=== PATIENT | female | born 1990 | race Caucasian/White ===

== ENCOUNTER 2018-08-07 16:39 | Emergency (ER) | payer MEDICAID ==
[~2018-08-07] VITALS: Ht 162.6 cm; Wt 72.7 kg
[2018-08-07 16:52] VITALS: Ht 162.6 cm; Wt 72.7 kg
[2018-08-07 17:08] LABS: APPEARANCE HAZY (CLEAR); BILIRUBIN 1+ (NEGATIVE); COLOR YELLOW (YELLOW); GLUCOSE NEGATIVE (NEGATIVE); KETONE NEGATIVE (NEGATIVE); NITRITE POSITIVE (NEGATIVE); PROTEIN 2+ mg/dL (NEGATIVE); SPECIFIC GRAVITY 1.015 (1.005-1.020)
[2018-08-07 17:09] LABS: WHITE CELLS - URINE >50 /hpf (0-5)
[2018-08-07 17:10] LABS: BACTERIA MODERATE /hpf (NONE SEEN); EPITHELIAL CELLS OCC /hpf (0-5); RED CELLS - URINE 0-5 /hpf (0-5)
[2018-08-07 17:47] LABS: BASOPHILS 0.1 % (0-2); HEMATOCRIT 42.5 % (36.0-48.0); IMMATURE GRANULOCYTES 0.2 % (0-5); LYMPHOCYTES 10.9 % (15-50); MCH 30.6 pg (26.0-34.0); MCHC 32.9 g/dL (31.0-37.0); MEAN PLATELET VOLUME 11.8 fL (7.4-10.4); MONOCYTES 5.1 % (2-11); NEUTROPHILS 82.7 % (40-80); PLATELET COUNT 183 10x3/uL (130-400); RBC 4.57 10x6/uL (4.00-5.40); RDW 12.9 % (11.5-14.5); WBC 13.5 10x3/uL (4.8-10.8)
[2018-08-07 18:06] LABS: ALBUMIN 3.1 g/dL (3.4-5.0); ALKALINE PHOSPHATASE 118 U/L (46-116); ALT (SGPT) 127 U/L (10-68); CALC OSMOLALITY 273 mosm/kg (275-300); CALCIUM 8.9 mg/dL (8.5-10.1); CARBON DIOXIDE 28.7 mmol/L (21.0-32.0); CHLORIDE - SERUM 102 mmol/L (98-107); CREATININE - SERUM 0.9 mg/dL (0.6-1.3); GLUCOSE 111 mg/dL (74-106); POTASSIUM - SERUM 3.6 mmol/L (3.5-5.1); PROTEIN - SERUM 7.4 g/dL (6.4-8.2); SODIUM 138 mmol/L (136-145); UREA NITROGEN 5 mg/dL (7-18); eGFR NON AFRICAN AMERICAN 80 mL/min (90-120)
[2018-08-07] MEDS ORDERED: NORCO 7.5/325 T1 TA1 PO (18:43)
[2018-08-07] MEDS ORDERED: MACROBID100 MG PO (18:43)
[2018-08-07 19:24] VITALS: BP 109/67
== END 2018-08-07 19:24 | disposition home or self-care (01) ==
LOC: D.ER 16:39
PROVIDERS: Emergency Medicine
DX: M54.5 Low back pain (principal); R79.89 Other specified abnormal findings of blood chemistry; N39.0 Urinary tract infection, site not specified; F17.200 Nicotine dependence, unspecified, uncomplicated

== ENCOUNTER → 2019-06-08 09:54 | Outpatient (CLI) | payer MEDICAID ==
[2018-08-07 16:52] VITALS: BMI 27.5
[~2019-06-08 09:54] MED LIST: MACROBID100 MG PO; NORCO 7.5/325 T1 TA1 PO
== END | disposition home or self-care (01) ==
LOC: D.US 09:54
PROVIDERS: ATTEND Student in an Organized Health Care Education/Training Program
DX: N63.10 Unspecified lump in the right breast, unspecified quadrant (principal); N63.20 Unspecified lump in the left breast, unspecified quadrant

== ENCOUNTER → 2019-06-22 12:32 | Outpatient (CLI) | payer MEDICAID ==
[2018-08-07 16:52] VITALS: BMI 27.5
[~2019-06-22 12:32] MED LIST changes: +PRENAVITE1 TAB PO; +TUMS X-STR300 MG PO; +ZOFRAN4 MG PO
[2019-06-22 13:30] LABS: BASOPHILS 0.2 % (0-2); EOSINOPHILS 1.7 % (0-7); HEMATOCRIT 34.3 % (36.0-48.0); HEMOGLOBIN 11.1 g/dL (12-16); IMMATURE GRANULOCYTES 0.2 % (0-5); LYMPHOCYTES 24.9 % (15-50); MCH 29.4 pg (26.0-34.0); MCHC 32.4 g/dL (31.0-37.0); MCV 90.7 fL (80.0-100.0); MEAN PLATELET VOLUME 12.9 fL (7.4-10.4); MONOCYTES 6.7 % (2-11); NEUTROPHILS 66.3 % (40-80); PLATELET COUNT 177 10x3/uL (130-400); RBC 3.78 10x6/uL (4.00-5.40); RDW 13.9 % (11.5-14.5); WBC 9.1 10x3/uL (4.8-10.8)
[2019-06-22 13:43] LABS: ALBUMIN 2.5 g/dL (3.4-5.0); ALKALINE PHOSPHATASE 213 U/L (46-116); ALT (SGPT) 13 U/L (10-68); BILIRUBIN - DIRECT 0.09 mg/dL (0.00-0.30); BILIRUBIN - INDIRECT 0.21 mg/dL (0.00-1.00); CALC OSMOLALITY 273 mosm/kg (275-300); CALCIUM 9.2 mg/dL (8.5-10.1); CARBON DIOXIDE 23.4 mmol/L (21.0-32.0); CHLORIDE - SERUM 105 mmol/L (98-107); CREATININE - SERUM 0.5 mg/dL (0.6-1.3); GLUCOSE 73 mg/dL (74-106); SODIUM 138 mmol/L (136-145); UREA NITROGEN 9 mg/dL (7-18); URIC ACID 5.1 mg/dL (2.6-7.2); eGFR NON AFRICAN AMERICAN > 90 mL/min (90-120)
[2019-06-22 15:52] LABS: APPEARANCE CLOUDY (CLEAR); COLOR YELLOW (YELLOW); GLUCOSE NEGATIVE (NEGATIVE); KETONE SMALL mg/dL (NEGATIVE); NITRITE NEGATIVE (NEGATIVE); PROTEIN NEGATIVE (NEGATIVE)
[2019-06-22 15:53] LABS: BILIRUBIN NEGATIVE (NEGATIVE); UROBILINOGEN NORMAL (NORMAL)
[2019-06-22 15:54] LABS: BACTERIA FEW /hpf (NEGATIVE); EPITHELIAL CELLS 0-5 /hpf (0-5); RED CELLS - URINE 0-5 /hpf (0-5); WHITE CELLS - URINE 0-5 /hpf (NEGATIVE)
[2019-06-22 15:55] LABS: AMORPHOUS SEDIMENT >1+ /lpf (NONE SEEN)
[2019-06-23 17:25] LABS: PROTEIN - URINE 14.2 mg/dL (0.0-11.9)
[2019-07-06 16:19] VITALS: BMI 37.1
== END | disposition home or self-care (01) ==
LOC: D.LDO 12:32
PROVIDERS: ATTEND Student in an Organized Health Care Education/Training Program
DX: O16.9 Unspecified maternal hypertension, unspecified trimester (principal)

== ENCOUNTER 2019-07-06 12:34 | Inpatient (IN) | payer MEDICAID ==
[~2019-07-06] VITALS: Ht 162.6 cm; Wt 98.0 kg
[~2019-07-06 12:34] MED LIST changes: -PRENAVITE1 TAB PO; -TUMS X-STR300 MG PO; -ZOFRAN4 MG PO
[2019-07-06] MEDS ORDERED: PRENAVITE1 TAB PO (14:07)
[2019-07-06] MEDS ORDERED: ZOFRAN4 MG PO (14:07)
[2019-07-06] MEDS ORDERED: TUMS X-STR300 MG PO (14:08)
[2019-07-06 14:27] LABS: HEMATOCRIT 35.9 % (36.0-48.0); HEMOGLOBIN 11.5 g/dL (12-16); MCH 29.3 pg (26.0-34.0); MCV 91.6 fL (80.0-100.0); MEAN PLATELET VOLUME 13.3 fL (7.4-10.4); RBC 3.92 10x6/uL (4.00-5.40); RDW 14.1 % (11.5-14.5); WBC 8.9 10x3/uL (4.8-10.8)
[2019-07-06 16:19] VITALS: BP 123/74; Ht 162.6 cm; Wt 98.0 kg
--- NOTE | 2019-07-07 02:00 | NUR ---
PATIENT SITTING IN BED EATING FOOD FROM HOME, DENIES PAIN OR NEEDS AT THIS TIME. WILL CONTINUE TO MONITOR
--- NOTE | 2019-07-07 02:45 | NUR ---
BLANKET PROVIDED PER PT REQUEST, NO FURTHER NEEDS IDENTIFIED. WILL CONTINUE TO MONITOR
--- NOTE | 2019-07-07 04:02 | NUR ---
PT LYING IN BED HOLDING INFANT, MOTRIN 600MG PO ADMINISTERED AT THIS TIME PER MD ORDERS. PT RATES HER PAIN 5/10. SEE EMAR. NO FURTHER NEEDS IDENTIFIED, CALL LYLE IN REACH.
[2019-07-07 04:05] VITALS: BP 126/60
--- NOTE | 2019-07-07 05:38 | NUR ---
PT SITTING IN BED HOLDING , STATES THAT SHE IS CRAMPING. INFORMED PT THAT HER MOTRIN ORDER IS FOR EVERY 6 HRS AND THE PERCOCET ORDER WAS JUST A ONE TIME ORDER. PT VERBALIZES UNDERSTANDING. NO NEEDS IDENTIFIED, PT STATES THAT SHE IS ABOUT TO BREASTFEED.
[2019-07-07 06:00] LABS: BASOPHILS 0.2 % (0-2); EOSINOPHILS 0.6 % (0-7); HEMATOCRIT 33.4 % (36.0-48.0); HEMOGLOBIN 10.5 g/dL (12-16); IMMATURE GRANULOCYTES 0.3 % (0-5); MCH 28.5 pg (26.0-34.0); MCHC 31.4 g/dL (31.0-37.0); MCV 90.5 fL (80.0-100.0); MEAN PLATELET VOLUME 13.8 fL (7.4-10.4); MONOCYTES 7.3 % (2-11); NEUTROPHILS 69.6 % (40-80); PLATELET COUNT 163 10x3/uL (130-400); RBC 3.69 10x6/uL (4.00-5.40); RDW 14.1 % (11.5-14.5)
[2019-07-07 06:30] LABS: WBC 11.4 10x3/uL (4.8-10.8)
--- NOTE | 2019-07-07 08:00 | NUR ---
TO PT'S ROOM, PT IS RESTING WITH EYES CLOSED, RESP EVEN AND UL AT 18, LIGHTS ARE OUT IN ROOM WITH DIMMERS ON. PT NOT DISTURBED. SRUP X2, CALL LIGHT AND PHONE WITHIN REACH.
[2019-07-07 08:11] LABS: RAPID PLASMA REAGIN Non Reactive (Non Reactive)
[2019-07-07 08:35] VITALS: BP 133/87
--- NOTE | 2019-07-07 08:35 | NUR ---
AM ASSESSMENT COMPLETED, PT DENIES HEAVY BLEEDING OR PASSING CLOTS. PT DENIES ALL NEEDS AT THIS TIME. SEE EMAR FOR ALL MEDS ADM BY THIS RN. SRUP X2, CALL LIGHT AND PHONE WITHIN REACH.
--- NOTE | 2019-07-07 13:35 | NUR ---
TO ROOM TO ADM REGLAN 10 MG IV, DILUTED WITH 10 CC'S NS, SL FLUSHED WITH 5 CC'S NS PRIOR TO ADM WITH GOOD BLOOD RETURN NOTED. REGLAN ADM SIVP, THEN FLUSHED WITH 5 CC'S NS AFTER MED ADM WITH GOOD BLOOD RETURN NOTED, WITH NO REDNESS OR SWELLING NOTED TO IV SITE, PT DOES C/O STINGING TO IV SITE UPON START OF FLUSH OR MED ADM. BLUE EMESIS BAGS PROVIDED. PT HAS LEMON [place] SODA TO SIP ON. DENIES ALL OTHER NEEDS AT THIS TIME. SRUP X 2, CALL LIGHT AND PHONE WITHIN REACH.
--- NOTE | 2019-07-07 14:00 | NUR ---
PT UP TO SHOWER. DENIES ALL NEEDS. PT STATES SHE IS FEELING A LITTLE BETTER NOW. SRUP X2, CALL LIGHT AND PHONE WITHIN REACH.
--- NOTE | 2019-07-07 17:55 | NUR ---
PT HEARD FROM THE DESK COUGHING AND VOMITING, TO ROOM TO ADM ZOFRAN 8 MG ODT, AND IBUPROFEN 600 MG PO FOR C/O BACK PAIN AND ABD CRAMPING. EXPLAINED TO PT DR. BARONE WANTS HER TO STAY ON A BLAND DIET UNTIL SHE IS ABLE TO KEEP SOLIDS DOWN. PT IS ABLE TO TOLERATE WATER AND LEMON [place] SODA. PT STATES SHE IS NOT PASSING GAS, BOWEL SOUNDS ACTIVE X 4. PLACED IN MOMS ARMS AT HER REQUEST. PT DENIES ALL OTHER NEEDS AT THIS TIME. SR UP X2, CALL LIGHT AND PHONE WITHIN REACH.
[2019-07-07 19:38] VITALS: BP 107/67
--- NOTE | 2019-07-07 19:38 | NUR ---
SHIFT ASSESSMENT COMPLETED, SEE FLOWSHEET
--- NOTE | 2019-07-07 20:25 | NUR ---
PT WALKING IN HALLWAY WITH FAMILY.
--- NOTE | 2019-07-07 21:00 | NUR ---
PATIENT BACK TO ROOM
--- NOTE | 2019-07-07 21:30 | NUR ---
NURSERY RN TO ROOM WITH INFANT IN OPEN CRIB. PT DENIES NEEDS.
--- NOTE | 2019-07-07 23:08 | NUR ---
PATIENT RESTING QUIETLY WITH EYES CLOSED, NO DISTRESS NOTED. RESPIRATIONS EVEN AND NON LABORED. WILL CONTINUE TO MONITOR.
--- NOTE | 2019-07-08 00:56 | NUR ---
reglan administered per md orders, see emar. pt denies needs at this time. will continue to monitor
--- NOTE | 2019-07-08 02:41 | NUR ---
PT CALLED OUT AUTOMOBILE [employer]PHOL[employer] LYLE, STATES THAT THE NURSERY RN WANTED TO KNOW WHEN THE BABY WAS AWAKE. GIBRAN SUNG CALLED TO INFORM OF THE SAME.
--- NOTE | 2019-07-08 04:39 | NUR ---
PT RESTING QUIETLY IN BED WITH EYES OPEN, HOLDING . NO NEEDS IDENTITIFED, WILL CONTINUE TO MONITOR
[2019-07-08 07:23] VITALS: BP 97/54
--- NOTE | 2019-07-08 07:30 | NUR ---
PT AAOX4 ON ENTRY TO ROOM, CONVERSANT, SMILING, INFANT IN ARMS AND LYING LEFT TILT, RESP EVEN AND UNLABORED, HEART RRR, LUNGS CTAB, ABD SOFT AND MILDLY TENDER, FF AT U/2 AND MIDLINE, LOCHIA RUBRA LIGHT [place], NO CLOTS, PERFORMING PERICARE WITH BETADINE/WATER MIX AFTER VOIDS PER REPORT, VOIDING WITHOUT DIFFICULTY, +FLATUS REPORTED, NO BM YET, CONLEY FREELY, NEGATIVE YISSEL'S SIGN B LE, PEDAL PULSES STRONG/=/+2 B. CALL LIGHT IN EASY REACH, VSS, BED IN LOW POSITION, HOB ELEVATED 30 DEGREES, BED BRAKES LOCKED. REPORTS SOME NAUSEA AND ABDOMINAL CRAMPING 5/10, REQUESTS ZOFRAN AND MOTRIN, SAME PROVIDED WITH APPLE JUICE. WILL MONITOR FOR CHANGE IN STATUS.
--- NOTE | 2019-07-08 08:20 | NUR ---
ROUNDS COMPLETED, DENIES PAIN OR NEEDS AT THIS TIME, RESTING WITH EYES CLOSED. CALL LIGHT IN EASY REACH. WILL MONITOR.
--- NOTE | 2019-07-08 09:22 | NUR ---
ROUNDS COMPLETED, NAD NOTED, WILL MONITOR FOR CHANGE IN CONDITION.
--- NOTE | 2019-07-08 10:40 | NUR ---
DR CHAU TO SEE PT, DISCUSSED DISCHARGE THIS PM AT 48 HOURS WITH NO CHANGE IN INFANT STATUS, NAD NOTED, DENIES NEEDS OR CONCERNS WITH THIS RN INQUIRY. WILL MONITOR.
--- NOTE | 2019-07-08 11:49 | NUR ---
lemon ione soda provided upon request, denies other needs at this time, infant resting in rolling crib adjacent to bed also nad.
--- NOTE | 2019-07-08 14:10 | NUR ---
PT C/O CRAMPING LOW ABDOMINAL PAIN RATED 6/10 ON NUMERIC PAIN SCALE, REQUESTS PRN MEDICATION; SAME PROVIDED. NO OTHER NEEDS VOICED AT THIS TIME, RESP EVEN AND UNLABORED, CALL LIGHT IN EASY REACH, CONTINUE TO MONITOR.
--- NOTE | 2019-07-08 15:15 | NUR ---
PAIN REASSESSMENT COMPLETED, PT DENIES PAIN, SOME DIFFICULTY WITH MAINTAINING LATCH WITH ON RIGHT BREAST, PROVIDED ADDITIONAL EDUCATION AND ASSISTANCE AND REASSURANCE, PT WITH SUCCESSFUL LATCH AND AT THIS TIME, NO FURTHER CONCERNS OR NEEDS AT THIS TIME, CONTINUE TO MONITOR. CALL LIGHT IN EASY REACH.
--- NOTE | 2019-07-08 16:20 | NUR ---
ROUNDS COMPLETED, DENIES NEEDS OR CONCERNS, CONTINUE TO MONITOR.
--- NOTE | 2019-07-08 17:08 | NUR ---
NAD NOTED, RESP EVEN AND UNLABORED, DENIES C/O PAIN, CALL LIGHT IN EASY REACH. CONTINUE TO MONITOR.
--- NOTE | 2019-07-08 18:10 | NUR ---
NO NEEDS OR CONCERNS VOICED, HOB ELEVATED 30 DEGREES, CALL LIGHT IN EASY REACH.
--- NOTE | 2019-07-08 19:10 | NUR ---
BEDSIDE REPORT REC'D FROM Ruadel HERNANDEZ RN. PT REC'D SITTING IN HIGH FOWLERS POSITION WITH IN ARMS. REQUESTS D/C INSTRUCTIONS [place], VERBALIZES UNDERSTANDING THAT CAN'T BE D/C'D HOME UNTIL AT LEAST 2100 AND HAS TO BE D/C'D SEPERATELY FROM HER. LT WRIST PIV D/C'D PER PT REQUEST, TIP INTACT. BANDAID PLACED, NO S/S OF INFILTRATION NOTED. REFUSES SHIFT ASSESSMENT. POC DISCUSSED, VERBALIZES UNDERSTANDING AND REQUEST MOTRIN WHEN AVAILABLE FOR ABD CRAMPING, 4-5/10 WITH BF. BED IN LOW POSITION WITH UPPER SIDE RAILS RAISED X2. CALL LIGHT AND PHONE WITHIN REACH. WILL CONTINUE TO MONITOR.
--- NOTE | 2019-07-08 19:10 | NUR ---
BEDSIDE REPORT TO Tete LARIOS RN
--- NOTE | 2019-07-08 20:13 | NUR ---
C/O ABD CRAMPING 02/27, MOTRIN GIVEN PER ORDER AND PT REQUEST. MMR GIVEN TO LEFT DELTOID. INSTRUCTED ON POSSIBLE SIDE EFFECTS OF MMR INJ, VERBALIZES UNDERSTANDING, INFO SHEET GIVEN. VERBALIZES UNDERSTANDING AND DENIES QUESTIONS. REFUSES REGLAN D/T NO IV ACCESS AND REFUSING PIV RESTART.
--- NOTE | 2019-07-08 20:35 | NUR ---
DISCHARGE INSTRUCTIONS REVIEWED WITH PT AND SIGNIFICANT OTHER. BOTH VERBALIZE UNDERSTANDING. MEDS REVIEWED, VERBALIZES UNDERSTANDING. PT VERBALIZES UNDERSTANDING OF DISCHARGE INSTRUCTIONS AND DENIES QUESTIONS. DISCHARGE INSTRUCTIONS SIGNED AND COPY PROVIDED TO PT. VERBALIZES UNDERSTANDING TO CALL CLINIC IN AM AND SCHEDULE FOLLOW UP APPT WITH DR. MORSE, VERBALIZES UNDERSTANDING.
--- NOTE | 2019-07-08 21:24 | NUR ---
PT OFF UNIT WITH IN [facility] IN W/C WITH Roberta BARBOSA RN.
== END 2019-07-08 21:24 | disposition home or self-care (01) | DRG 807 ==
LOC: D.LD 12:34
PROVIDERS: ADMIT Student in an Organized Health Care Education/Training Program; ATTEND Student in an Organized Health Care Education/Training Program
PROC: 10E0XZZ Delivery of Products of Conception, External Approach (ICD-10-PCS; principal; 2019-07-06)
DX: O99.824 Streptococcus B carrier state complicating childbirth (principal); Z37.0 Single live birth; Z3A.39 39 weeks gestation of pregnancy; O69.81X0 Labor and delivery complicated by cord around neck, without compression, not applicable or unspecified; O71.82 Other specified trauma to perineum and vulva